=== PATIENT | male | born 1990 | race African-American/Black ===

== ENCOUNTER 2017-08-14 22:50 | Emergency (ER) | payer OTHER ==
[~2017-08-14] VITALS: Ht 172.7 cm; Wt 81.8 kg
[2017-08-14 22:58] VITALS: BP 117/60
== END 2017-08-15 03:15 | disposition left against medical advice (07) ==
LOC: M ED 22:50
DX: Z53.21 Procedure and treatment not carried out due to patient leaving prior to being seen by health care provider (principal)